=== PATIENT | female | born 1985 | race Caucasian/White ===

== ENCOUNTER 2018-02-10 19:36 | Emergency (ER) | payer SELFPAY ==
[2018-02-10] MEDS ORDERED: DIPHENHYDRAMINE HCL 50 MG/ML VIAL IM ONE (19:57)
[2018-02-10] MEDS ORDERED: METHYLPREDNISOLONE PF 125MG/VIAL IM ONE (19:57)
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
== END 2018-02-10 20:25 | disposition home or self-care (01) ==
LOC: ER 19:36
DX: L23.7 Allergic contact dermatitis due to plants, except food (principal)
CPT/HCPCS: 96372; 99283; J1200; J2930